=== PATIENT | female | born 1935 | race Caucasian/White ===

== ENCOUNTER 2016-09-05 21:04 | Emergency (ER) | payer OTHER ==
[2016-09-05 21:27] VITALS: RESP 20; TEMP 98.4
[2016-09-05] MEDS ORDERED: NORMAL SALINE 10 ML SYRINGE FLUSH IVP PRN (21:33)
--- NOTE | 2016-09-05 21:33 | PDOC ---
General Adult HPI - General Chief Complaint: General Medical Stated Complaint: Memory Loss Date Seen by Provider: 09/05/16 Time Seen by Provider: 21:28 Source: POSITIVE: Patient, Other (Daughter) Exam Limitations: POSITIVE: No limitations Nurse's Notes Reviewed & Considered: Yes - History of Present Illness Initial Comment: This is a 81-year-old female who presents to the emergency department with a history of memory loss seems relatively abrupt just starting today the daughter notes that she was both for short term as well as long-term memory. She states that she seemed to be in her normal state of mental health until about 4:00 this afternoon when she started asking repetitive questions. Her daughter does note that she has been under a lot of stress recently, with multiple family members and other relatives passing away over the last couple of months. She has no other real specific symptoms. She has no fevers or chills, no headaches , no chest pain or shortness of breath. Have you received a tetanus shot in the past 10 years?: Unknown - Patient Home Medications Home Medications: Home Medications Aspirin [Lo-Dose Aspirin Ec] 81 mg PO DAILY #30 tab 03/29/14 Clobetasol Propionate [Temovate] 30 gm TP BID #1 tube 12/26/15 Atenolol 25 mg ORAL QD #90 tab 04/15/16 Mv-Mn/FA/Vit K/Lycop/Lut/Zeaxa [Ocuvite Eye + Multi Tablet] 1 each PO tab 04/15 Fesoterodine Fumarate [Toviaz] 4 mg PO DAILY #30 tab 04/17/16 Oxybutynin Chloride 5 mg PO BID #60 tab 04/24/16 - Patient Allergies Allergies/Adverse Reactions: Allergies Allergy/AdvReac Type Severity Reaction Status Date / Time quinine Allergy Unknown SHORTNESS Verified 09/05/16 21:11 OF BREATH Past Medical History - heen HEENT History: Cataracts, Tinnitis Cardiovascular History: Hypertension Respiratory History: Denies History Gastrointestinal History: Denies History Genitourinary History: Denies History Endocrine History: Denies History Musculoskeletal History: Arthritis Neurological History: TIA, Other (please comment) Additional Neurological History: FAMILY STATES APPROX. 4 YEARS AGO HAD SIMILAR MEMORY LOSS AND WAS KEPT IN HOSPITIAL AND RELEASED NEXT DAY WITH POSSIBLE "MINI STROKE" Blood Disorders: Denies History Psychiatric History: Denies History History of Sexually Transmitted Diseases: No Female Reproductive History: Denies History Obstetrical History: Denies History Cancer History: Denies History In Past Year Been Physically Harmed or Verbally Threatened: No History of MDRO: No History of Other Communicable Diseases: No Tobacco Use: Never Smoker Alcohol Use: Rarely Substance Use Type: None Previous Surgical History: Yes Type / Date of Surgery: HYSTERECTOMY. RADHA Malignant Hyperthermia: No Significant Family History: No pertinent family hx Past Medical History Reviewed: Reviewed - No Changes ROS - Limitations ROS Limitations: No Limitations Constitution: DENIES: Chills, Fever Cardiovascular: DENIES: Chest Pain Respiratory: REPORTS: Denies Resp Symptoms Neurological: REPORTS: Confusion. DENIES: Headache, Tingling, Numbness Gastrointestinal: DENIES: Abdominal Pain, Nausea, Vomitting, Diarrhea Musculoskeletal: DENIES: Muscle Aches Genitourinary: DENIES: Dysuria, Hematuria ENT: DENIES: Congestion, Nasal Drainage, Sore Throat Skin: DENIES: Rash Psychiatric: POSITIVE: Other (Increased stress recently due to several relatives passing away recently) General Adult Exam - General Appearance General Appearance: POSITIVE: Alert, Cooperative, No Acute Distress - HEENT HEENT: POSITIVE: PERRL. NEGATIVE: Scleral Icterus - Respiratory Respiratory: POSITIVE: No Respiratory Distress, Breath Sounds Normal. NEGATIVE : Wheezes, Rales, Rhonchi - Cardiovascular Cardiovascular: POSITIVE: Regular Rate & Rhythm, No Murmur, No Gallop Peripheral Pulses: Dorsalis-pedis (R): 1+, Dorsalis-pedis (L): 1+ - Abdomen Additional Abdominal Details: Abdomen is soft, nontender, nondistended, no organomegaly. Active bowel sounds all 4 quadrants. No pulsatile masses or abdominal bruits. - Back Back: NEGATIVE: CVA Tenderness - Skin Skin: POSITIVE: Warm, Dry, No Rash - Extremities Additional Extremities Details: No pitting edema. - Neurological / Psychological Neurological: POSITIVE: Affect Apporpriate General Adult Progress - Results Reviewed by me Xrays/CTs/US Reviewed by me: Yes Discussed with Radiologist: Yes Radiology Findings: CT of the head revealed no acute infarct, CT of her chest revealed no pulmonary embolus and no evidence of pneumonia, but did reveal a large hiatal hernia with her whole stomach now in her chest cavity. Lab Results Reviewed: Yes Lab Results:: Laboratory Results 09/05/16 09/05/16 Range/Units 21:33 23:36 WBC 11.46 H (4.8-10.8) 10^3/uL RBC 5.82 H (4.20-5.40) 10^6/uL Hgb 16.7 H (12.0-16.0) g/dL Hct 50.6 H (37.0-47.0) % MCV 86.9 (81-99) FL MCH 28.7 (27-31) PG MCHC 33.0 (33-37) g/dL RDW Std Deviation 42.4 (39-50) fL RDW Coeff of Edwar 13.4 (11.5-14.5) % Plt Count 198 (140-350) 10*3/uL MPV 11.3 (7.4-12.2) FL Immature Gran % (Auto) 0.3 (0-5) % Neut % (Auto) 71.3 (50-80) % Lymph % (Auto) 20.2 (10-50) % Steele % (Auto) 6.8 (5-15) % Eos % (Auto) 1.0 (0-8) % Baso % (Auto) 0.4 (0-1) % Immature Gran # (Auto) 0.03 10*3/UL Neut # (Auto) 8.18 10*3/UL Lymph # (Auto) 2.31 10*3/uL Steele # (Auto) 0.78 (0.3-0.8) 10*3/UL Eos # (Auto) 0.11 10*3/UL Baso # (Auto) 0.05 10*3/UL WBC Morphology Comment Normal morphology (NORM) Plt Morphology Comment Normal morphology (NORM) RBC Morph Comment Normal morphology (NORM) Sodium 141 (135-145) meq/L Potassium 4.0 (3.8-5.2) meq/L Chloride 106 (98-112) meq/L Carbon Dioxide 25 (23-33) meq/L Anion Gap 10 (5-20) BUN 13 (7-22) mg/dL Creatinine 0.8 (0.50-1.20) mg/dL Estimated GFR (>60 ml/min/1.73m(2)) BUN/Creatinine Ratio 16.25 (6-20) Glucose 117 H (78-110) mg/dL Calculated Osmolality 292.0 (267-292) mOsm/kg Calcium 9.6 (8.7-10.7) mg/dL Total Bilirubin 0.8 (0.3-1.2) mg/dL AST 50 H (8-39) IU/L ALT 35 (9-52) IU/L Alkaline Phosphatase 82 (38-126) IU/L Total Protein 7.2 (6.1-8.0) g/dL Albumin 4.2 (3.5-4.8) g/dL Globulin 2.9 (2.50-4.10) g/dL Albumin/Globulin Ratio 1.40 (1.3-2.0) mg/g Ur Collection Type Clean catch urine Urine Color Yellow Urine Clarity Clear (CLEAR) Urine pH 5.0 (5.0-8.5) Ur Specific [place] 1.020 (1.005-1.030) Urine Protein Negative (NEG) mg/dl Urine Glucose (UA) Negative (NEG) mg/dL Urine Ketones Trace (NEG) Urine Occult Blood Negative (NEG) Urine Nitrate Negative (NEG) Urine Bilirubin Negative (NEG) Urine Urobilinogen 1.0 (0.2) EU/dL Ur Leukocyte Esterase Negative (NEG) Ur Culture Indicated? Culture not set - Patient's Progress Re-Examine Time: 02:15 Re-Examine Comment: Patient has been quite stable throughout the course of her emergency room stay, she does continue to have some memory problems but no further issues. I have checked on this patient several times throughout the course of her emergency room stay relaying labs and x-ray results as they have returned. Status: POSITIVE: Unchanged MDM / ED Course: Emergency room course: After initial evaluation, an IV was started, labs were drawn, urinalysis was obtained, chest x-rays were initially obtained as well. CT of her head was done. Once the initial lab results were reviewed, they're discussed with the patient and her family. I did review the chest x-ray myself independent of radiologist over read, I did not see any obvious pneumonia, but I didn't see what seemed to be a large hiatal hernia. This is discussed with the family and the patient as well. CT of her head was negative for intracranial abnormality, no evidence of stroke. Since she continued to be hypoxic throughout her emergency room stay, I elected to get a CT of her chest. The CT showed no evidence of pneumonia or pulmonary embolus, did show that she has a large hiatal hernia with her whole stomach now her chest cavity. I believe this is why she is somewhat hypoxemic. I also believe at this point that the hypoxemia is the only reasonable option to explain her mental memory issues. They also could be some element of dementia as well. I discussed my thoughts with the patient and family. I believe this is reasonable to arrange for home oxygen at this time, and have patient follow-up with [facility] in [place] to discuss the risks and benefits of surgical repair of her hiatal hernia. I did offer the family the possibility of admission, if they are comfortable taking her home, but this point they agree that home oxygen is probably the best option. Patient Care Time - Estimated PCT Patient Care Time (In Minutes): 40 Vital Signs - Recent Vital Signs Vital Signs: Vital Signs (Last 8 hours) Temp Pulse Resp BP Pulse Ox 09/05/16 21:05 98.4 F 75 20 171/102 88 Discharge Clinical Impression: Hiatal hernia, Hypoxemia Discharge Disposition: Discharged to Home Condition: Stable Patient Instructions Given at Discharge: Using Oxygen at Home (ED), Hiatal Hernia (ED)
[2016-09-05 21:56] LABS: BASOPHILS # (AUTO) 0.05 10*3/UL; BASOPHILS % (AUTO) 0.4 % (0-1); EOSINOPHILS # (AUTO) 0.11 10*3/UL; HEMATOCRIT 50.6 % (37.0-47.0); HEMOGLOBIN 16.7 g/dL (12.0-16.0); LYMPHOCYTES # (AUTO) 2.31 10*3/uL; MEAN CORPUSCULAR HEMOGLOBIN 28.7 PG (27-31); MEAN CORPUSCULAR VOLUME 86.9 FL (81-99); MEAN PLATELET VOLUME 11.3 FL (7.4-12.2); MONOCYTES # (AUTO) 0.78 10*3/UL (0.3-0.8); MONOCYTES % (AUTO) 6.8 % (5-15); NEUTROPHILS # (AUTO) 8.18 10*3/UL; NEUTROPHILS % (AUTO) 71.3 % (50-80); RED BLOOD COUNT 5.82 10^6/uL (4.20-5.40)
[2016-09-05 21:57] LABS: PLATELET MORPHOLOGY COMMENT NORMAL MORPHOLOGY (NORM); RBC MORPHOLOGY COMMENT NORMAL MORPHOLOGY (NORM); WBC MORPHOLOGY COMMENT NORMAL MORPHOLOGY (NORM)
[2016-09-05 22:02] LABS: BUN/CREATININE RATIO 16.25 (6-20); CALCIUM 9.6 mg/dL (8.7-10.7); SERUM ALBUMIN 4.2 g/dL (3.5-4.8)
--- NOTE | 2016-09-05 22:56 | DI ---
HISTORY: Sudden memory loss and confusion. COMPARISON: 04/19/2011. TECHNIQUE: Multiple helically acquired CT images were obtained through the brain without contrast. FINDINGS: Examination demonstrates normal, symmetric ventricles and other CSF containing spaces. Th ere is no mass, hemorrhage or midline shift. The surrounding soft tissue and osseous structures are unremarkable. A few peripheral vascular calci fications are seen. IMPRESSION: 1. No acute intracranial pathology. CT can be insensitive to stroke in the first 24 hours.
[2016-09-05 23:43] LABS: BILIRUBIN,URINE NEGATIVE (NEG); COLOR,URINE YELLOW; GLUCOSE, URINE (UA) NEGATIVE (NEG); NITRATE,URINE NEGATIVE (NEG); OCCULT BLOOD,URINE NEGATIVE (NEG); PROTEIN,URINE NEGATIVE (NEG)
[2016-09-05 23:50] LABS: CLARITY,URINE CLEAR (CLEAR)
[2016-09-05 23:51] LABS: URINE SAMPLE TYPE CLEAN CATCH URINE
--- NOTE | 2016-09-06 01:50 | DI ---
HISTORY: Hypoxemia. COMPARISON: None available. TECHNIQUE: Multiple helically acquired CT images were obtained through the chest following the admin istration of 75 cc of Isovue 300. FINDINGS: Examination demonstrates a large hiatal hernia with extrusion of the entire stomach throug h the diaphragmatic hiatus. There is some subsegmental atelectasis. The pulmonary arteries are normal without filling defect or truncation. Skeletal structures are unremarkable. The upper abdomen is unremarkable. IMPRESSION: 1. No evidence of pulmonary embolism. 2. Large hiatal hernia with extrusion of the entire stomach through the diaphragmatic hiatus.
--- NOTE | 2016-09-06 11:15 | DI ---
PA /LATERAL CHEST X-RAY, 09/05/2016 8:33 PM : Clinical History: Hypoxemia. Previous Exam: None at this facility. There is no acute soft tissue or bony abnormality. There is mild cardiomegaly. The vessels are pletho shala and slightly hazy and this would be consistent with early CHF. There is no acute infiltrate or ef fusion. There is a large hiatal hernia with the appearance on both the PA and lateral films represent ing a structure that is larger than the size of the heart. This would imply that the patient probably has herniated the entire stomach through the diaphragmatic hernia. There are no pulmonary nodules. Readin. There is no acute infiltrate or effusion. 2. Mild cardiomegaly with probable mild CHF. 3. Large hiatal hernia that in size is larger than that of the heart. It is possible that the entire stomach is herniated through the defect.
== END 2016-09-06 03:50 | disposition home or self-care (01) ==
LOC: ER 21:04
DX: R09.02 Hypoxemia (principal); K44.9 Diaphragmatic hernia without obstruction or gangrene; R41.3 Other amnesia; R41.0 Disorientation, unspecified
CPT/HCPCS: 70450; 71020; 71260; 80053; 81003; 85025; 99283

== ENCOUNTER → 2016-09-11 | Outpatient (CLI) | payer OTHER | LOC: MMPC 09:00 | PROVIDERS: ATTEND Nurse Practitioner Family | DX: K44.9 Diaphragmatic hernia without obstruction or gangrene (principal); R09.02 Hypoxemia | CPT/HCPCS: 99213; G0463 ==

== ENCOUNTER → 2016-09-24 | Outpatient (CLI) | payer OTHER | LOC: MMPC 11:11 | PROVIDERS: ATTEND Surgery | DX: K44.9 Diaphragmatic hernia without obstruction or gangrene (principal); R09.02 Hypoxemia | CPT/HCPCS: 99203; G0463 ==

== ENCOUNTER → 2016-10-14 | Outpatient (CLI) | payer OTHER | LOC: MMPC 09:00 | PROVIDERS: ATTEND Family Medicine | DX: R09.02 Hypoxemia (principal); R41.3 Other amnesia | CPT/HCPCS: 99214; G0463 ==

== ENCOUNTER → 2016-10-22 | Outpatient (CLI) | payer OTHER ==
--- NOTE | 2016-10-22 15:38 | DI ---
DUPLEX COLOR DOPPLER CAROTID ULTRASOUND, 10/22/2016 12:27 PM: Clinical History: Episode of memory loss. Previous Exam: 04/20/2011. Technique: 2D real time imaging is supplemented with duplex color doppler ultrasound imaging. RIGHT CAROTID ARTERY: 2D real time imaging of the right carotid system shows tortuosity of the proximal right internal ferrari tid artery and this appearance is typical of patients who have chronic hypertension. There are calcif ied and noncalcified plaques in the carotid bulb and calcified plaques extend into the origin of the internal carotid artery. Peak systolic velocities through the right common carotid, the external ferrari tid, and the internal carotid are 61 cm/s, 72 cm/s, and 73 cm/s, respectively. All values correspond to diameter stenoses of 0-49%. LEFT CAROTID ARTERY: 2D real time imaging of the left carotid system shows marked tortuosity of the proximal left internal carotid artery, typical of patients with chronic hypertension. Calcified plaques are present in the carotid bulb. Peak systolic velocities through the left common carotid, the external carotid, and the internal carotid are 61 cm/s, 68 cm/s, and 59 cm/s, respectively. All values correspond to diameter stenoses of 0-49%. VERTEBRAL ARTERIES: There is antegrade flow through both vertebral arteries Cardiac rhythm is regular. Peak systolic [place] through the visualized portions of the right and left vertebral arteries are 49 cm/s and 23 cm /s, respectively. Both values correspond to diameter stenoses of 0-49%. Readin. There is no hemodynamically significant stenosis of either carotid system. 2. There is antegrade flow through both vertebral arteries. Cardiac rhythm is regular. 3. There has been no significant interval change.
--- NOTE | 2016-10-23 08:29 | DI ---
MRI BRAIN SCAN WITHOUT AND WITH IV CONTRAST, 10/22/2016 12:27 PM: Clinical History: Episode of memory loss. Previous Exam: None at this facility. Sequences: Axial and sagittal T1 pre contrast and axial and coronal post contrast; axial T2 and FLAIR . Diffusion weighted images with ADC mapping are also performed. 13 mL of ProHance (279.3 mg/mL) was injected IV. The 4th, 3rd, and lateral ventricles are of normal size, shape, position, and contour for this patien t's age. There are multiple punctate periventricular white matter hyperintensities bilaterally that e xtend into the watershed territory, consistent with small vessel ischemic disease. This amount of isc hemic disease is moderately pronounced for the patient's age. There are no abnormally enhancing lesio ns. There is moderate cerebral atrophy. Diffusion weighted imaging with ADC mapping is otherwise norm al. There are no extracerebral mantels or shift of the midline structures. The paranasal sinuses are normal. Readin. There is no evidence of an acute hemorrhagic or bland infarct. 2. Moderately severe small vessel ischemic disease. 3. Moderate cerebral atrophy.
== END ==
LOC: MRI 10:56
PROVIDERS: ATTEND Family Medicine
DX: R41.3 Other amnesia (principal); G31.89 Other specified degenerative diseases of nervous system
CPT/HCPCS: 36415; 70553; 82565; 84520; 93880

== ENCOUNTER → 2016-10-23 | Outpatient (CLI) | payer OTHER ==
--- NOTE | 2016-10-23 14:06 | DI ---
MR ANGIOGRAPHY OF THE [place] OF [place], 10/23/2016 1:23 PM: Clinical History: Episode of memory loss. Previous Exam: None at this facility. High resolution axial 3D thin slice time of flight scans are performed for the arterial phase. 3D MIP S reconstructions are obtained. The right vertebral artery is dominant. There is no basilar tip aneurysm or aneurysm arising from the vertebral-basilar branches. There are bilateral stenoses of the supraclinoid portion of the internal carotid arteries in the estimated stenosis is in the range of 50-60%. No posterior communicating art андрей is present. No definite anterior communicating artery is identified. There is a less than 50% oscar nosis of the lateral portion of the right A1 segment. The left A1and both A2, both M1 through M3 bran ches are normal. Readin. Both supraclinoid portions of the internal carotid arteries have estimated stenoses of 50-60%. Th ere is a less than 50% stenosis of the distal portion of the right A1 segment. 2. There are no posterior communicating arteries and there is no anterior communicating artery ident ified. The remainder of the [place] of [place] is normal.
== END ==
LOC: RAD 13:20
PROVIDERS: ATTEND Family Medicine
DX: R41.3 Other amnesia (principal)
CPT/HCPCS: 70544

== ENCOUNTER → 2016-11-04 | Outpatient (CLI) | payer OTHER | LOC: MMPC 09:00 | PROVIDERS: ATTEND Family Medicine | DX: R09.02 Hypoxemia (principal); I67.82 Cerebral ischemia; I10 Essential (primary) hypertension | CPT/HCPCS: 99214; G0463 ==

== ENCOUNTER 2019-01-29 08:04 | Inpatient (IN) ==
[2019-01-29] MEDS ORDERED: Sodium Chloride 0.9% 1,000 ML PRIMARY IV ONE (08:25)
[2019-01-29] MEDS ORDERED: ASPIRIN 81 MG (BABY) CHEWABLE TABLET PO ONE (08:25)
[2019-01-29] MEDS ORDERED: DILTIAZEM 5 MG/ML - 5 ML IV ONE (08:29)
--- NOTE | 2019-01-29 08:31 | EKG ---
[place] [address] [place] [id number] Test Date: 2019-01-29 Pat Name: FATMATA MESA Department: ER Room: ICU.2 Gender: Female Blueprint Developer: NISSA : 1935 Requested By: SUSHMA HAIRSTON Order Number: [id number] Reading MD: Fareed Senior MD Measurements Intervals [place] Rate: 117 P: WV: 0 QRS: 116 QRSD: 88 T: 0 QT: 311 QTc: 435 Interpretive Statements ATRIAL FLUTTER/TACHYCARDIA WITH RAPID VENTRICULAR RESPONSE WITH ABERRANT CONDUCTION OR VENTRICULAR PREMATURE COMPLEXES POSSIBLE RIGHT VENTRICULAR HYPERTROPHY [SOME/ALL OF: PROMINENT R IN V1, LATE TRANSITION, RAD, MAYKEL, SSS] NONSPECIFIC ST & T-WAVE ABNORMALITY Compared to ECG 12/22/2018 12:55:19 Ventricular premature complex(es) now present T-wave abnormality still present Electronically Signed On 01-31-2019 9:40:31 MDT by Fareed Senior MD [id number]
[2019-01-29 08:33] LABS: BASOPHILS # (AUTO) 0.02 10*3/UL; BASOPHILS % (AUTO) 0.2 % (0-1); EOSINOPHILS # (AUTO) 0.08 10*3/UL; EOSINOPHILS % (AUTO) 0.7 % (0-8); Hematocrit [HCT] 57.3 % (37.0-47.0); Hemoglobin [HGB] 17.8 g/dL (12.0-16.0); LYMPHOCYTES # (AUTO) 2.09 10*3/uL; MEAN CORPUSCULAR HGB CONC 31.1 g/dL (33-37); MEAN PLATELET VOLUME 11.5 FL (7.4-12.2); MONOCYTES # (AUTO) 1.15 10*3/UL (0.3-0.8); MONOCYTES % (AUTO) 9.5 % (5-15); NEUTROPHILS % (AUTO) 72.1 % (50-80)
[2019-01-29 08:35] LABS: PLATELET MORPHOLOGY COMMENT NORMAL MORPHOLOGY (NORM); RBC MORPHOLOGY COMMENT NORMAL MORPHOLOGY (NORM); WBC MORPHOLOGY COMMENT NORMAL MORPHOLOGY (NORM)
[2019-01-29 08:38] LABS: SERUM ALBUMIN 4.8 g/dL (3.5-4.8)
--- NOTE | 2019-01-29 08:53 | PDOC ---
Chest Pain HPI - General Chief Complaint: Chest Pain Stated Complaint: CHEST PAIN Date Seen by Provider: 01/29/19 Time Seen by Provider: 08:10 Source: Patient, Other (Grand daughter) Exam Limitations: POSITIVE: No limitations Treatment Prior to Arrival: REPORTS: None Nurse's Notes Reviewed & Considered: Yes - History of Present Illness Initial Comments: The patient is an 84-year-old female who is brought by her granddaughter to the emergency room from [place]. Patient states that around 1800 last night, 14 hours ago, she developed anterior chest discomfort radiating into her back. Patient has a history of atrial fibrillation and is on Zarrella toe. She also takes metoprolol presumably for atrial fibrillation as well as hypertension. She takes furosemide 20 mg daily for "swollen ankles. She's had a laparoscopic cholecystectomy and a hysterectomy. No fevers or chills. No dyspnea. No c ough. No diaphoresis. Patient states that she did manage to get some sleep last night, but her sleep was "disturbed, and I couldn't find a comfortable position". Body Location Affected: REPORTS: Chest Timing: REPORTS: Constant Duration: <24 hours Severity: Moderate (14 hours) Persistent/Worse since (date): 01/28/19 Persistent/Worse since (time): 18:00 Context: REPORTS: Rest Quality: REPORTS: "Pain" Radiation: REPORTS: None Associated Symptoms: DENIES: Nausea, Vomiting, Diaphoresis, Shortness of Breath, Hurts to Breathe, Palpitations, Productive Cough (blood), Productive Cough (sputum), Weakness, Dizziness Modifying Factors: improves with: None Reported Similar Symptoms Previously: No Recently seen/treated/hospitalized: No Any Prior Injuries Related to Current Complaint?: No - Patient Home Medications Home Medications: Home Medications furosemide 20 mg tablet 20 mg PO QAM #90 tab 12/22/18 metoprolol succinate ER 25 mg tablet,extended release 24 hr 25 mg PO BID #180 tab 12/22/18 rivaroxaban 15 mg tablet 15 mg PO QDAY #14 tab 12/24/18 - Patient Allergies Allergies/Adverse Reactions: Allergies Allergy/AdvReac Type Severity Reaction Status Date / Time quinine Allergy Unknown SHORTNESS Verified 01/29/19 08:10 OF BREATH Past Medical History - heen HEENT History: Cataracts, Tinnitis Cardiovascular History: Hypertension Respiratory History: Denies History Gastrointestinal History: Denies History Genitourinary History: Denies History Endocrine History: Denies History Musculoskeletal History: Arthritis Prosthesis or Implant: No Neurological History: TIA, Other (please comment) Additional Neurological History: FAMILY STATES APPROX. 4 YEARS AGO HAD SIMILAR MEMORY LOSS AND WAS KEPT IN HOSPITIAL AND RELEASED NEXT DAY WITH POSSIBLE "MINI STROKE" Blood Disorders: Denies History Psychiatric History: Denies History History of Sexually Transmitted Diseases: No Female Reproductive History: Hysterectomy Cancer History: Denies History In Past Year Been Physically Harmed or Verbally Threatened: No History of MDRO: No History of Other Communicable Diseases: No Tobacco Use: Never Smoker Alcohol Use: Rarely In the Past 12 Months, Have Used or Abuse Any Substance: None Previous Surgical History: Yes Type / Date of Surgery: HYSTERECTOMY. RADHA Malignant Hyperthermia: No Significant Family History: No pertinent family hx Past Medical History Reviewed: Reviewed - No Changes ROS - Limitations ROS Limitations: No Limitations Constitution: REPORTS: Denies Symptoms Cardiovascular: REPORTS: Chest Pain Respiratory: REPORTS: Denies Resp Symptoms Neurological: REPORTS: Denies Neuro Symptoms Gastrointestinal: REPORTS: Denies GI Symptoms Endocrine: REPORTS: Denies Symptoms Musculoskeletal: REPORTS: Denies MS Symptoms Genitourinary: REPORTS: Denies Symptoms Eyes: REPORTS: Denies Symptoms ENT: REPORTS: Denies Symptoms Skin: REPORTS: Denies Skin Symptoms Lympathic: REPORTS: Denies Lympathic Symptoms Immunologic: POSITIVE: Denies Symptoms Psychiatric: POSITIVE: Denies Psych Symptoms Chest Pain PE - General Appearance General Appearance: REPORTS: Alert, Cooperative, No Acute Distress, No Evidence of Trauma - HEENT HEENT: POSITIVE: Head Inspection Nml, Eyes Inspection Nml, Ears Inspection Nml, Nose Inspection Nml, Oral/Dental Inspect. Nml, Pharynx Inspect. Nml, PERRL, EOMI - Neck Neck: REPORTS: Normal Inspection, No Carotid Bruit - Respiratory Respiratory: REPORTS: No Respiratory Distress, Breath Sounds Normal, Chest Non- Tender - Cardiovascular Cardiovascular: REPORTS: Heart Sounds Normal, Equal Pulses, Strong Pulses, No Murmur, No Gallop, No Friction Rub, Irregularly Irreg Rhythm (Atrial fib rillation or irregular atrial flutter on electrocardiogram and oriented monitor), Tachycardia. DENIES: Regular Rate and Rhythm (Irregularly irregular rhythm, tachycardic the left 244/m) Peripheral Pulses: Radial (R): 2+, Radial (L): 2+ - Abdomen Abdomen: Soft: (All Quadrants), Normal Bowel Sounds: (All Quadrants), Denies Tenderness: (All Quadrants), No Splenomegaly: (All Quadrants), No Hepatomegaly: (All Quadrants), No Guarding: (All Quadrants), No Rebound: (All Quadrants), No Palpable Pulse: (All Quadrants), No Palpabale Mass: (All Quadrants), No Distention: (All Quadrants), No Rigidity: (All Quadrants) - Skin Skin: REPORTS: Intact, Normal For Race, Warm, Dry, No Rash - Extremities Extremity: Non-Tender: (All Extremities), Normal ROM: (All Extremities), Normal Inspection: (All Extremities) - Neurological / Psychological Neurological: POSITIVE: Affect Apporpriate, Oriented X3, design project manager Normal As Tested, Motor Normal, Sensation Normal Images - Complete Complete: 1 - Area described discomfort Chest Pain Progress - Results Reviewed by me Xrays/CTs/US Reviewed by me: Yes Discussed with Radiologist: No (Chest x-ray ordered and results are pending) Lab Results Reviewed by Me: Yes (results his CBC reviewed; other laboratory values pending) CBC and BMP: 01/29/19 08:15 Lab Results:: Laboratory Results 01/29/19 01/29/19 01/29/19 08:15 08:15 08:15 WBC 12.06 H RBC 6.30 H Hgb 17.8 H Hct 57.3 H MCV 91.0 MCH 28.3 MCHC 31.1 L RDW Std Deviation 46.1 RDW Coeff of Edwar 13.8 Plt Count 182 MPV 11.5 Immature Gran % (Auto) 0.2 Neut % (Auto) 72.1 Lymph % (Auto) 17.3 [place] % (Auto) 9.5 Eos % (Auto) 0.7 Baso % (Auto) 0.2 Immature Gran # (Auto) 0.02 Neut # (Auto) 8.70 Lymph # (Auto) 2.09 Bath # (Auto) 1.15 H Eos # (Auto) 0.08 Baso # (Auto) 0.02 WBC Morphology Comment Normal morphology Plt Morphology Comment Normal morphology RBC Morph Comment Normal morphology PT 24.4 H INR 2.11 D-Dimer 403 CK-MB (CK-2) 1.53 EKG Interpreted/Reviewed By Me:: Yes (atrial fibrillation, tachycardic with rapid ventricular response) EKG Interpretation:: POSITIVE: Normal Intervals, Normal [place], Normal QRS, Normal ST/T, Abnormal EKG. NEGATIVE: Normal Sinus Rhythm (Atrial fibrillation), Normal Rate (Tachycardic) - Patient's Progress Re-Examine Time: 08:45 Re-Examine Comment: Diltiazem, serial 0.25 mg/kg bolus ordered. Dr. Dasilva, assumes care of patient at 0840. Status: POSITIVE: Unchanged, Re-Examined Quality Measure Initiative: CP/AMI: POSITIVE: EKG, ASA - Consult Counseled: POSITIVE: Patient, Family (Granddaughter), RE: DX, RE: Need for F/U Patient Care Time - Estimated PCT Patient Care Time (In Minutes): 30 Vital Signs - Recent Vital Signs Vital Signs: Vital Signs (Last 8 hours) Temp Pulse Resp BP Pulse Ox 01/29/19 08:13 97.2 F 138 H 16 142/95 88 - VS Reviewed Vital Signs Reviewed: Yes Discharge Clinical Impression: Chest pain, Atrial fibrillation with RVR Discharge Disposition: Other (Care transferred to Dr. Dasilva at 0840) Condition: Fair Patient Problem(s) Reviewed: Yes Follow Up With: Frank Sultana [Primary Care Provider] -
--- NOTE | 2019-01-29 09:02 | PDOC ---
Transfer of Care - Care Accepted Time Care Transferred: 08:40 Report from Transferring Physician Received: Yes MDM / ED Course: I assumed care at over [address] Juarez at the end of his shift. At that time patient had received diltiazem bolus and we were awaiting laboratory findings. EKG showed atrial fibrillation with RVR of 117 beats a minute. Patient presented to the emergency room this morning because of chest pain and shortness of breath. Her granddaughter head transported her to [facility] from [facility]. Her chest pain began last night at approximately 1800 hrs. She states that she slept but it was broken and she was unable to get co mfortable during the night. Patient does have a history of hypertension, atrial fibrillation, congestive heart failure, and cholecystectomy. Home Medications: Home Medications furosemide 20 mg tablet 20 mg PO QAM #90 tab 12/22/18 metoprolol succinate ER 25 mg tablet,extended release 24 hr 25 mg PO BID #180 tab 12/22/18 rivaroxaban 15 mg tablet 15 mg PO QDAY #14 tab 12/24/18 Allergies/Adverse Reactions: Allergies quinine Allergy (Unknown, Verified 01/29/19 08:10) SHORTNESS OF BREATH - Pending Patient Care Items Pending Patient Care Items: POSITIVE: Labs, X-ray Results - Expected Patient Outcome Tentative Impression of Patient: Chest pain and shortness of breath with Atrial fibrillation and congestive heart failure. Expected Disposition: POSITIVE: Admit IP Expected Disposition of Patient: Expecte disposition is admission. - Re-Evaluation of Patient Re-Examine Time:: 09:30 Disposition of Patient: POSITIVE: Admitted Counseled: POSITIVE: Patient, Family, RE: Lab Results, RE: Radiology Results, RE: DX Pending Test Results Documented: Yes Clinical Impression Documented: Yes - Results Reviewed Lab Results Reviewed by Me: Yes Lab Results: Laboratory Results 01/29/19 01/29/19 01/29/19 08:15 08:15 08:15 WBC 12.06 H RBC 6.30 H Hgb 17.8 H Hct 57.3 H MCV 91.0 MCH 28.3 MCHC 31.1 L RDW Std Deviation 46.1 RDW Coeff of Edwar 13.8 Plt Count 182 MPV 11.5 Immature Gran % (Auto) 0.2 Neut % (Auto) 72.1 Lymph % (Auto) 17.3 Bartholomew % (Auto) 9.5 Eos % (Auto) 0.7 Baso % (Auto) 0.2 Immature Gran # (Auto) 0.02 Neut # (Auto) 8.70 Lymph # (Auto) 2.09 Bartholomew # (Auto) 1.15 H Eos # (Auto) 0.08 Baso # (Auto) 0.02 WBC Morphology Comment Normal morphology Plt Morphology Comment Normal morphology RBC Morph Comment Normal morphology PT 24.4 H INR 2.11 D-Dimer 403 Sodium 143 Potassium 4.5 Chloride 104 Carbon Dioxide 27 Anion Gap 12 BUN 19 Creatinine 1.0 Estimated GFR BUN/Creatinine Ratio 19.00 Glucose 122 H Calculated Osmolality 298.0 H Calcium 10.3 Magnesium Total Bilirubin 2.7 H AST 75 H ALT 57 H Alkaline Phosphatase 88 CK-MB (CK-2) Troponin I NT-Pro-B Natriuret Pep 2260 H Total Protein 8.3 H Albumin 4.8 Globulin 3.5 Albumin/Globulin Ratio 1.30 01/29/19 01/29/19 01/29/19 08:15 08:15 08:15 WBC RBC Hgb Hct MCV MCH MCHC RDW Std Deviation RDW Coeff of Edwar Plt Count MPV Immature Gran % (Auto) Neut % (Auto) Lymph % (Auto) Bartholomew % (Auto) Eos % (Auto) Baso % (Auto) Immature Gran # (Auto) Neut # (Auto) Lymph # (Auto) Bartholomew # (Auto) Eos # (Auto) Baso # (Auto) WBC Morphology Comment Plt Morphology Comment RBC Morph Comment PT INR D-Dimer Sodium Potassium Chloride Carbon Dioxide Anion Gap BUN Creatinine Estimated GFR BUN/Creatinine Ratio Glucose Calculated Osmolality Calcium Magnesium 2.0 Total Bilirubin AST ALT Alkaline Phosphatase CK-MB (CK-2) 1.53 Troponin I < 0.012 NT-Pro-B Natriuret Pep Total Protein Albumin Globulin Albumin/Globulin Ratio EKG Interpreted/Reviewed By Me:: Yes (atrial fibrillation with RVR 117 beats a minute) EKG Interpretation:: POSITIVE: Abnormal EKG - Consult Consult (If Yes, Name of Consulting MD & Time Called): Yes (Dr. Bustillo at 0930 hrs.) Patient Care Time - Estimated PCT Patient Care Time (In Minutes): 45 Vital Signs - Recent Vital Signs Vital Signs: Vital Signs (Last 8 hours) Temp Pulse Resp BP Pulse Ox 01/29/19 08:13 97.2 F 138 H 16 142/95 88 - VS Reviewed Vital Signs Reviewed: Yes Discharge Clinical Impression: Chest pain, Atrial fibrillation with RVR Discharge Disposition: Admit to Inpatient Condition: Stable Patient Problem(s) Reviewed: Yes Follow Up With: Frank Sultana [Primary Care Provider] - Date Decision to Admit to Inpatient: 01/29/19 Time Decision to Admit to Inpatient: 09:25
--- NOTE | 2019-01-29 09:04 | DI ---
AP CHEST X-RAY, 01/29/2019 8:40 AM : Clinical History: Chest pain. Previous Exam: 09/05/2016. Soft Tissues: No acute soft tissue abnormality. Bones: Normal. Heart: Heart Size: Cardiomegaly. Vascular Pedicle Width: Enlarged and it has increased from the previ ous study which also was abnormally increased. Azygous Vein: Cannot visualize. Vascular Flow Pattern: Reversal of flow to upper lobes indicating chronic elevated left atrial pressure. There is peribronch ial cuffing with perivascular haziness. There is also haziness of the naomie as well as increased lung density. These changes indicate there is interstitial and alveolar edema. There is splaying of the ri ght and left mainstem bronchi indicating left atrial enlargement. Pulmonary Arteries: Normal. Lungs: No infiltrates. Effusion(s): None. Mediastinum: Large hiatal hernia, greater in transverse diameter than that of the heart. Nodules: No pulmonary nodules. Readin. Cardiomegaly with chronic left heart failure with decompensation manifested by interstitial and a lveolar pulmonary edema. Left atrial enlargement. 2. Large hiatal hernia.
[2019-01-29] MEDS ORDERED: FUROSEMIDE 10 MG/1 ML - 4 ML IVP ONE (09:20)
[2019-01-29] MEDS: Diltiazem Drip 125 MG in Sodium Chloride 0.9% 100 ML IV ONE ×2 (09:21→20:13)
[2019-01-29] MEDS ORDERED: LIDOCAINE W/ SODIUM BICARB 0.5 ML SYR SUBD PRN (11:57)
--- NOTE | 2019-01-29 12:31 | PDOC ---
HPI - History of Present Illness Date of Service: 01/29/19 Time of Service: 11:30 Chief Complaint: Aching feeling in the anterior chest that goes to the back that started at 6:00 last night. History of Present Illness: This is an 84 years old female with medical history significant for history of atrial flutter/fibrillation, history of congestive heart failure and hypertension who was brought to the hospital for evaluation because of some achy feeling in the back that radiated to the anterior chest which started last night. She rated the discomfort maybe about 5-6 out of 10. It's unrelated to exertion. Some shortness of breath. No nausea, no cough. No fever and because of the symptoms she was brought to the hospital by the family. Patient had an EKG done in the ER which showed the rate about 117, she had the chest x-ray which showed some interstitial edema in addition he had a BNP which was elevated she received Cardizem and then she received also Lasix and was admitted.. By the time she came into the floor she said she feels better compared to when she came in. Past Medical History Medical History: 1. History of atrial flutter/fibrillation, apparently in 1999 she had a history of atrial fibrillation and she was on Coumadin for about 2 years and she converted to sinus rhythm and was off medications. She had symptoms again in July and developed atrial flutter and she's been followed up by Dr. Medina. 2. History of hypertension. 3. History of arthritis. 4. History of gallstones Surgical History: 1. History of cholecystectomy. 2. History of partial hysterectomy Family History: Reviewed an Not Pertinent Past Social History: She does not smoke, occasionally drinking, no drugs. Lives in [place]. Tobacco Use: Never Smoker In the Past 12 Months, Have Used or Abuse Any of the Following Substance: None Medication / Allergies Home Medications: Home Medications Medication Instructions Recorded Confirmed furosemide 20 mg tablet 20 mg PO QAM #90 tab 12/22/18 01/29/19 metoprolol succinate ER 25 mg 25 mg PO BID #180 tab 12/22/18 01/29/19 tablet,extended release 24 hr rivaroxaban 15 mg tablet 15 mg PO QDAY #14 tab 12/24/18 01/29/19 Allergies/Adverse Reactions: Allergies Allergy/AdvReac Type Severity Reaction Status Date / Time quinine Allergy Unknown SHORTNESS Verified 01/29/19 08:10 OF BREATH Review of Systems - Review of Systems All Systems: Reviewed & No Additional Complaints Except as Stated Exam - Vitals Vital Signs: Vital Signs Temperature 98.7 F Temperature Source Oral Pulse Rate [Pulse Oximeter] 84 Respiratory Rate 16 Blood Pressure [Left Arm] 107/63 Blood Pressure [Right Arm] 102/79 Pulse Ox 91 Oxygen Flow Rate 4 Oxygen Delivery Method Nasal Cannula Height 4 ft 11 in Weight 145 lb - General General Appearance: No Acute Distress, Cooperative - Head Head Exam: Normal Inspection - Eye Eye Exam: POSITIVE: Normal Appearance - ENT ENT Exam: POSITIVE: Normal Exam - Neck Neck Exam: Normal Inspection - Respiratory Respiratory Exam: POSITIVE: Clear to Auscultation - Bilaterally - Cardiovascular Cardiovascular Exam: POSITIVE: Irregular Rhythm - GI/Abdominal GI/Abdominal Exam: POSITIVE: Normal Bowel Sounds, Non Tender, Non Distended, Soft, No Organomegaly - Rectal Rectal Exam: POSITIVE: Deferred - External Exam: POSITIVE: Deferred Exam: POSITIVE: Deferred - Extremities Extremities Exam: POSITIVE: Normal Inspection - Back Back Exam: POSITIVE: Normal Inspection - Neurological Neurological Exam: POSITIVE: Alert, Oriented x 3, CN II-XII Intact, No Facial Droop, Speech Intact / Clear, Moves All Extremities Equally - Psychiatric Psychiatric Exam: POSITIVE: Normal Affect Results - Labs CBC and BMP: 01/29/19 08:15 01/29/19 12:10 - EKG Data -: EKG Interpreted by Me - EKG Data When Compared to Previous EKG(s) There Are: Other (EKG showed atrial flutter with variable blocks incomplete right bundle) - Imaging Status: Report Reviewed by Me (Chest X ray 1. Cardiomegaly with chronic left heart failure with decompensation manifested by interstitial and alveolar pulmonary edema. Left atrial enlargement. 2. Large hiatal hernia.) Assessment and Plan - Patient Problems (1) Atrial flutter Current Visit: Yes Status: Acute Comment: Rate is uncontrolled she did receive Cardizem continue Cardizem continue metoprolol will try to adjust the metoprolol later on and try just keep her on the metoprolol. Continue with the anticoagulation. Will repeat her cardiac enzymes. Code(s): I48.92 - Unspecified atrial flutter (2) CHF (congestive heart failure) Current Visit: Yes Status: Acute Comment: She received diuretics will continue with the diuretics. She had a recent echocardiogram which showed the ejection fraction to be on the low side. Code(s): I50.9 - Heart failure, unspecified (3) Abnormal LFTs Current Visit: Yes Status: Acute Comment: Reason is unclear, I think will do an ultrasound of her abdomen to look at the bile duct as she has a history of previous stones. Also will take a blood culture because of slightly elevated white count. there is no history of fever though. White count slight elevation may be a reaction to the event that brought her here. Will repeat tomorrow. Code(s): R94.5 - Abnormal results of liver function studies
[2019-01-29] MEDS: METOPROLOL SUCCINATE 25 MG SR 24H TABLET PO SCH (20:40)
[2019-01-29] MEDS: Rivaroxaban Tab 10 MG TAB PO SCH (20:40)
--- NOTE | 2019-01-29 21:25 | DI ---
RIGHT UPPER QUADRANT ULTRASOUND, 01/29/2019 11:56 AM: Clinical History: Abnormal LFTs Previous Exam: None at this facility. Technique: Right upper quadrant scanned in multiple projections with Color Doppler ultrasound. Liver Texture: Normal sonographic texture. Liver Size: Normal. 140 mm. Gallbladder: Status post cholecystectomy. Common Bile Duct: 6 mm. Pancreas: Limited views of the head and neck. Those portions are normal. Right Kidney: Normal right kidney. IVC and Aorta: IVC normal. Aorta not visualized. READIN. Normal liver ultrasound. No hepatomegaly. 2. IVC is normal in caliber. 3. Common bile duct is 6 mm, normal for a postcholecystectomy patient.
[2019-01-29] MEDS ORDERED: Diltiazem Drip 125 MG in Sodium Chloride 0.9% 100 ML IV SCH (22:00)
[2019-01-29] MEDS: Sodium Chloride 0.9% 1,000 ML PRIMARY IV SCH (22:12)
[2019-01-30 04:48] LABS: BASOPHILS # (AUTO) 0.03 10*3/UL; BASOPHILS % (AUTO) 0.3 % (0-1); EOSINOPHILS % (AUTO) 1.1 % (0-8); Hematocrit [HCT] 47.2 % (37.0-47.0); Hemoglobin [HGB] 14.8 g/dL (12.0-16.0); LYMPHOCYTES # (AUTO) 2.33 10*3/uL; MEAN CORPUSCULAR HGB CONC 31.4 g/dL (33-37); MEAN CORPUSCULAR VOLUME 91.8 FL (81-99); MEAN PLATELET VOLUME 11.6 FL (7.4-12.2); MONOCYTES % (AUTO) 11.7 % (5-15); NEUTROPHILS # (AUTO) 5.82 10*3/UL; NEUTROPHILS % (AUTO) 61.9 % (50-80); RED BLOOD COUNT 5.14 10^6/uL (4.20-5.40)
[2019-01-30 05:01] LABS: PLATELET MORPHOLOGY COMMENT NORMAL MORPHOLOGY (NORM); RBC MORPHOLOGY COMMENT NORMAL MORPHOLOGY (NORM); WBC MORPHOLOGY COMMENT NORMAL MORPHOLOGY (NORM)
[2019-01-30 05:13] LABS: SERUM ALBUMIN 3.2 g/dL (3.5-4.8)
[2019-01-30] MEDS ORDERED: FUROSEMIDE 10 MG/1 ML - 4 ML IVP SCH (07:00)
[2019-01-30] MEDS: METOPROLOL SUCCINATE 25 MG SR 24H TABLET PO SCH (09:48)
[2019-01-30] MEDS: DILTIAZEM 60 MG TABLET PO SCH ×4 (10:33→20:10)
--- NOTE | 2019-01-30 11:08 | PDOC(PROG) ---
Interval History: This very nice 84-year-old female who was admitted for A. fib flutter RVR patient was put on a Cardizem drip. Her rates have been under control this morning and 90s to 100s. She is on Cardizem drip and also beta trista. Denies chest pain nausea vomiting shortness of breath. Objective : Data - Labs CBC and BMP: 01/30/19 04:35 01/30/19 04:35 Objective : Exam - General General Appearance: No Acute Distress, Cooperative - Respiratory Respiratory Exam: Clear to Auscultation - Bilaterally, Breathing Non Labored, Normal To Percussion, Normal to Percussion and Palpation - Cardiovascular Cardiovascular Exam: Irregular Rhythm - GI/Abdominal GI/Abdominal Exam: Normal Bowel Sounds, Non Tender, Non Distended, Soft, No Masses, No Hepatomegaly, No Splenomegaly, No Organomegaly - Extremities Extremities Exam: No Clubbing Present, No Edema Present, No Cyanosis Present Assessment and Plan - Patient Problems (1) Atrial flutter Current Visit: Yes Status: Acute Code(s): I48.92 - Unspecified atrial flutter (2) CHF (congestive heart failure) Current Visit: Yes Status: Acute Code(s): I50.9 - Heart failure, unspecified (3) Abnormal LFTs Current Visit: Yes Status: Acute Code(s): R94.5 - Abnormal results of liver function studies - Assessment / Plan Additional Assessment/Plan Details: 1) Atrial flutter/fib with RVR -continue Cardizem drip and is now at 5 mics per hour I will add Cardizem 60 4 times a day since beta trista is not doing the great job in controlling her rate. She did see the sand system operator the and early December and a possible cardioversion was in the in the process but patient wanted to delay this. She also has the cardio myopathy and global hypokinesis most l vanitaely from A. fib flutter cardiology is aware. This echo was done in November unable to repeat at present time secondary to no wastewater technician available. Troponins remain negative hopefully we can get this patient off the drip with the Cardizem 4 times a day if she stays this way overnight tomorrow she can probably be discharged with follow-up with her sand system operator as an outpatient. Continue chronic anticoagulation with xarelto
[2019-01-30] MEDS ORDERED: FUROSEMIDE 10 MG/1 ML - 2 ML VIAL IVP SCH (13:00)
--- NOTE | 2019-01-30 13:09 | DI ---
CT ANGIOGRAM OF THE CHEST, 01/30/2019 11:30 AM : Clinical History: Decreased O2 saturation. Chest pain. Previous Exam: 09/06/2016. Technique: Scans from base of neck to lung bases with IV contrast. Bolus tracking protocol was used f or timing the injection. Non-MIPS and MIPS sagittal/coronal images generated. IV Contrast: 75 mL of Ultravist 370. Base of Neck: Normal. Nodes: Normal axillary, supraclavicular, mediastinal, and hilar lymph nodes. Heart: Cardiomegaly. There is right and left atrial enlargement in the size of each atria has increas ed since the last exam. 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 The left heart is barely opacified indicati ng significant decreased cardiac output. Small calcifications are present in the middle third of the LAD. Aorta: There is an ascending aortic aneurysm that measures 43 x 40 mm in AP and transverse dimensions versus 41 x 40 on the previous study indicating there has been no significant interval change. There is no dissection. Pulmonary Arteries: No pulmonary emboli or pulmonary embolism with infarction. There is pulmonary art erial hypertension. Mediastinum: A large hiatal hernia is present similar to the previous exam. Lungs: No infiltrates. Bilateral lower lobe atelectasis. There is evidence of interstitial and alveol ar pulmonary edema. Effusion(s): Minimal bilateral pleural effusions. Nodules: None. Bony Structures: Normal visualized portions of ribs, sternum, scapulae, clavicles, and shoulders. Nor mal visualized portions of thoracic spine. Limited Upper Abdomen: Normal adrenal glands and spleen size. Punctate calcifications are present in the spleen indicating previous exposure to TB or histoplasmosis. Normal limited views of liver and pa ncreas. READIN. Negative CTA of the chest for pulmonary emboli or pulmonary infarcts. There is pulmonary arterial hypertension. 2. Interval development of tricuspid insufficiency with increasing left atrial enlargement and devel opment of right atrial enlargement. There is decreased cardiac output with mild alveolar and intersti tial pulmonary edema. 3. Ascending aortic aneurysm with no change and no evidence of dissection. 4. No change in the large hiatal hernia.
[2019-01-30] MEDS: Rivaroxaban Tab 10 MG TAB PO SCH (20:10)
[2019-01-30] MEDS: CARVEDILOL 12.5 MG TABLET PO SCH (21:03)
[2019-01-30] MEDS: Sodium Chloride 0.9% 1,000 ML PRIMARY IV SCH (23:11)
[2019-01-31] MEDS ORDERED: Sodium Chloride 0.9% 500 ML IV ONE ×2 (00:06→00:55)
[2019-01-31] MEDS: CARVEDILOL 12.5 MG TABLET PO SCH (09:12)
[2019-01-31] MEDS ORDERED: Magnesium Sulfate 2gm (Premix) 2 GM/50 ML BAG IV ONE (09:50)
--- NOTE | 2019-01-31 11:21 | PDOC(PROG) ---
Interval History: Feels good this morning no chest pain nausea or vomiting Objective : Data - Labs CBC and BMP: 01/30/19 04:35 01/30/19 04:35 Objective : Exam - General General Appearance: Cooperative - Respiratory Respiratory Exam: Clear to Auscultation - Bilaterally, Breathing Non Labored, Normal To Percussion, Normal to Percussion and Palpation - Cardiovascular Cardiovascular Exam: Tachycardia - GI/Abdominal GI/Abdominal Exam: Normal Bowel Sounds, Non Tender, Non Distended, Soft, No Masses, No Hepatomegaly, No Splenomegaly, No Organomegaly - Extremities Extremities Exam: No Clubbing Present, No Edema Present, No Cyanosis Present Assessment and Plan - Patient Problems (1) Atrial flutter Current Visit: Yes Status: Acute Comment: Patient is off the drip and she is now on carvedilol 12.5 twice a day hopefully this will help she does have CHF and has been a challenge to manage blood pressures with diuresis and try to keep her heart rate below 100. Stop Lasix today she diuresed about 2-1/2-3 L off the Cardizem drip. I did speak with the sizer machine that last night no need to do an echo acutely can be done as an outpatient if rhythm stays okay and pressures stable we'll continue to observe today. I explained all this to the patient and she understands and agrees if things get worse or unable to get her rhythm under control with rate control meds she will need to be transferred to [place] Code(s): I48.92 - Unspecified atrial flutter (2) CHF (congestive heart failure) Current Visit: Yes Status: Acute Comment: Stop Lasix good diuresis but the systolic blood pressure on the low side Code(s): I50.9 - Heart failure, unspecified (3) Abnormal LFTs Current Visit: Yes Status: Acute Code(s): R94.5 - Abnormal results of liver function studies
[2019-01-31 14:27] LABS: BUN/CREATININE RATIO 23.75 (6-20); SERUM ALBUMIN 3.9 g/dL (3.5-4.8)
[2019-01-31 14:33] VITALS: RESP 18
[2019-01-31] MEDS ORDERED: DILTIAZEM HCL 125mg/25 ml vial IV ONE (15:14)
[2019-01-31] MEDS ORDERED: Sodium Chloride 0.9% 100 ML IV ONE (15:14)
[2019-01-31] MEDS ORDERED: Diltiazem Drip 125 MG in Sodium Chloride 0.9% 100 ML IV SCH (15:15)
[2019-01-31 15:18] VITALS: BP 120/77; TEMP 98.6; O2SAT 92
--- NOTE | 2019-01-31 15:30 | DCSUMMARY ---
Hospitalization Summary Hospital Course: Final Discharge Diagnosis: Current Visit Problems Problem Status Onset Code Chest pain Acute R07.9 Atrial fibrillation with RVR Acute I48.91 Atrial flutter Acute I48.92 CHF (congestive heart failure) Acute I50.9 Abnormal LFTs Acute R94.5 Diagnostic Data, Laboratory Data, and Procedures of Signifigance: Laboratory Results 01/31/19 14:00 Sodium 140 Potassium 3.9 Chloride 102 Carbon Dioxide 29 Anion Gap 9 BUN 19 Creatinine 0.8 Estimated GFR BUN/Creatinine Ratio 23.75 H Glucose 118 H Calculated Osmolality 292.0 Calcium 9.2 Total Bilirubin 2.0 H AST 29 ALT 51 Alkaline Phosphatase 63 Total Protein 6.9 Albumin 3.9 Globulin 3.0 Albumin/Globulin Ratio 1.30 History and Physical pertinent to Admission: Problem list #1 A. fib flutter with RVR #2 global hypokinesis #3 congestive heart failure Course of Hospitalization: Is a very nice 84-year-old female with history of a flutter RVR back in November saw Dr. Medina at that time. She was put on anticoagulation. And beta trista. Echo showed in November hypokinesis global with a EF of 40%. Comes into the hospital with the shortness of breath and a flutter RVR the patient was put on Cardizem drip was subsequently switched over to carvedilol and became hypotensive and was given 1 L of fluid back home blood pressures normalized but she is back in 2 sinus tach A. fib flutter at a rate of 120 230 even while sleeping Cardizem drip was restarted. I discussed the case with Dr. Hansen which accepted the patient in transfer. Patient is further workup with echo and possible stress test unable to get rhythm on the control differential diagnosis possible 2 vessel disease with global hypokinesis will need more specialized care. Also patient has congestive heart failure CT scan of the chest revealed no pulmonary embolus but interstitial fluid she was diuresed about 2.8 L Lasix was stopped because of her hypotension. Her electrolytes were replaced with magnesium and potassium. On the date of discharge, the patient was examined: Gen.: No acute distress, alert, nontoxic Heart: Regular rate and rhythm, no murmurs, clicks, gallops, or rubs Lungs: Clear to auscultation bilaterally, breathing is nonlabored Abdomen/GI: Normal tones on auscultation, soft, nontender, nondistended Musculoskeletal/extremities: No clubbing, cyanosis, or edema Vitals reviewed and are listed below Vital Signs (24 hrs) 01/30/19 16:00 01/30/19 17:00 01/30/19 17:54 Temperature 98.4 F 99.4 F Pulse Rate Pulse Rate [Pulse Oximeter] 89 96 90 Pulse Rate [left hand] 90 Respiratory Rate 16 18 18 Blood Pressure [Left Arm] Blood Pressure [Right Arm] 133/72 123/76 125/71 Pulse Ox 92 93 93 Pulse Ox [left hand] 93 01/30/19 19:00 01/30/19 20:00 01/30/19 21:00 Temperature 98.8 F Pulse Rate 96 Pulse Rate [Pulse Oximeter] 94 98 100 Pulse Rate [left hand] 89 Respiratory Rate 20 20 16 Blood Pressure [Left Arm] Blood Pressure [Right Arm] 114/75 128/88 118/66 Pulse Ox 91 91 90 Pulse Ox [left hand] 91 01/30/19 22:00 01/30/19 23:00 01/30/19 23:01 Temperature Pulse Rate 67 Pulse Rate [Pulse Oximeter] 90 68 Pulse Rate [left hand] Respiratory Rate 24 17 Blood Pressure [Left Arm] Blood Pressure [Right Arm] 92/63 68/56 78/52 Pulse Ox 90 91 Pulse Ox [left hand] 01/31/19 00:00 01/31/19 00:55 01/31/19 02:00 Temperature Pulse Rate Pulse Rate [Pulse Oximeter] 62 58 L 60 Pulse Rate [left hand] Respiratory Rate 22 20 18 Blood Pressure [Left Arm] 68/46 80/51 86/56 Blood Pressure [Right Arm] Pulse Ox 90 93 91 Pulse Ox [left hand] 01/31/19 03:00 01/31/19 03:01 01/31/19 04:00 Temperature Pulse Rate 79 Pulse Rate [Pulse Oximeter] 74 73 Pulse Rate [left hand] Respiratory Rate 19 18 Blood Pressure [Left Arm] 86/56 Blood Pressure [Right Arm] 83/50 90/54 Pulse Ox 90 93 Pulse Ox [left hand] 01/31/19 05:00 01/31/19 06:00 01/31/19 06:05 Temperature Pulse Rate Pulse Rate [Pulse Oximeter] 78 79 Pulse Rate [left hand] Respiratory Rate 16 18 Blood Pressure [Left Arm] 86/60 Blood Pressure [Right Arm] 101/83 Pulse Ox 93 91 93 Pulse Ox [left hand] 01/31/19 07:00 01/31/19 07:47 01/31/19 08:00 Temperature 98.5 F Pulse Rate 86 Pulse Rate [Pulse Oximeter] 93 105 H Pulse Rate [left hand] 102 H Respiratory Rate 18 18 Blood Pressure [Left Arm] Blood Pressure [Right Arm] 91/63 90/67 Pulse Ox 93 94 Pulse Ox [left hand] 92 01/31/19 09:00 01/31/19 10:00 01/31/19 11:00 Temperature 98.4 F Pulse Rate 120 H Pulse Rate [Pulse Oximeter] 113 H 116 H 118 H Pulse Rate [left hand] 113 H 118 H Respiratory Rate 16 18 18 Blood Pressure [Left Arm] Blood Pressure [Right Arm] 109/79 110/72 116/82 Pulse Ox 94 94 94 Pulse Ox [left hand] 94 94 01/31/19 12:00 01/31/19 13:00 01/31/19 14:00 Temperature 98.5 F Pulse Rate Pulse Rate [Pulse Oximeter] 120 H 117 H 121 H Pulse Rate [left hand] 117 H Respiratory Rate 16 18 18 Blood Pressure [Left Arm] Blood Pressure [Right Arm] 120/84 120/89 122/94 Pulse Ox 93 95 95 Pulse Ox [left hand] 95 01/31/19 15:00 Temperature 98.6 F Pulse Rate Pulse Rate [Pulse Oximeter] 123 H Pulse Rate [left hand] 123 H Respiratory Rate 18 Blood Pressure [Left Arm] 120/77 Blood Pressure [Right Arm] Pulse Ox 92 Pulse Ox [left hand] 92 Assessment and Plan: 1. As per discharge assessments above 2. Disposition: Transferred to [facility] 3. Condition on discharge, stable and improved. 4. Diet: regular diet 5. Activities: resume normal activities 6. Follow-Up: 1. PCP 2. 7. Medications at the Time of Discharge: Home Medications Medication Instructions Recorded Confirmed furosemide 20 mg tablet 20 mg PO QAM #90 tab 12/22/18 01/29/19 metoprolol succinate ER 25 mg 25 mg PO BID #180 tab 12/22/18 01/29/19 tablet,extended release 24 hr rivaroxaban 15 mg tablet 15 mg PO QDAY #14 tab 12/24/18 01/29/19 8. Time, care, counseling and coordination of care for this discharge is greater than 30 minutes. Exam - Vitals Vital Signs: Vital Signs Temperature 98.6 F Temperature Source Oral Pulse Rate [Pulse Oximeter] 123 Pulse Rate [left hand] 123 Pulse Rate 120 Respiratory Rate 18 Blood Pressure [Left Arm] 120/77 Blood Pressure [Right Arm] 122/94 Pulse Ox [left hand] 92 Pulse Ox 92 Oxygen Flow Rate [left hand] 4 Oxygen Flow Rate 4 Oxygen Delivery Method [left Nasal Cannula hand] Oxygen Delivery Method Nasal Cannula Height 4 ft 11 in Weight 144 lb 3.2 oz Patient Problems - Patient Problem List (1) Atrial flutter Current Visit: Yes Status: Acute Code(s): I48.92 - Unspecified atrial flutter Category: Medical (2) CHF (congestive heart failure) Current Visit: Yes Status: Acute Code(s): I50.9 - Heart failure, unspecified Category: Medical (3) Abnormal LFTs Current Visit: Yes Status: Acute Code(s): R94.5 - Abnormal results of liver function studies Category: Medical
== END 2019-01-31 16:29 | disposition home or self-care (01) | DRG 313 ==
LOC: ER 08:04 → ICU 10:36
PROVIDERS: ADMIT Internal Medicine; ATTEND Internal Medicine